=== PATIENT | female | born 1950 | race African-American/Black ===

== ENCOUNTER 2017-08-10 06:55 | Emergency (ER) | payer MEDICARE ==
[~2017-08-10] VITALS: Ht 165.1 cm; Wt 72.0 kg
[~2017-08-10 06:55] MED LIST: AMLODIPINE10 MG OR; AMLODIPINE5 MG PO; ASPIRIN LOW DOS81 M1 PO; ATORVASTATI80 MG/TAB PO; CIPROFLOXACN500 MG PO; FLEXERIL PO; GLIPIZIDE ER5 M1 PO; GLYBURID MCR3 MG PO; JANUVIA50 MG PO; LEVEMIR FL100 UNIT/M SC; LEVOTHROID50 MCG OR; LEVOTHYROXIN75 MCG PO; LIPITOR10 MG OR; LORTAB 7.5-3251 TAB PO; LOSARTAN POTASS25 MG PO; MAXZIDE-2537.5 MG/TA PO; METFORMIN500 M1 OR; METFORMIN500 MG PO; NORVASC5 MG OR; NOVOLOG FLEXPEN SC; OMEPRAZOLE40 MG OR; PREVACID30 M1 OR; RANITIDINE300 MG PO; SIMVASTATIN40 MG PO; SIMVASTATIN80 MG OR; SYNTHROID75 MCG OR; SYNTHROID88 MCG OR; ULTRAM50 M1 PO
[2017-08-10] MEDS ORDERED: ZOFRAN ODT4 MG PO (07:27)
[2017-08-10] MEDS ORDERED: ANTIVERT PO (07:27)
[2017-08-10 07:57] LABS: HEMOGLOBIN 14.7 g/dl (12.0-16.0); MEAN CELL VOLUME 87.8 fL CALC (80.0-100.0); MEAN CORPUSCULAR HGB 29.3 pG CALC (26.0-32.0); MEAN CORPUSCULAR HGB CONC 33.4 g/L CALC (32.0-36.0); NEUT# 1.95 thou/uL (2.00-7.15); RED BLOOD COUNT 5.01 mill/uL (4.20-5.60)
[2017-08-10 08:37] LABS: ALBUMIN 3.7 g/dL (3.2-5.0); ALKALINE PHOSPHATASE 60 u/l (38-126); ANION GAP 11 (6-22 (CALC)); BILIRUBIN, TOTAL 0.4 mg/dL (0.0-1.4); BUN 23 mg/dL (8-23); BUN/CREATININE RATIO 19 (12-20 (CALC)); CARBON DIOXIDE 29 mmol/l (22-30); CHLORIDE 106 mmol/l (95-108); CREATININE 1.2 mg/dL (0.5-1.0); GFR 45 ML/MIN (>=60 (CALC)); GFR FOR AFR.AMER. 55 ML/MIN (>=60 (CALC)); POTASSIUM 3.8 mmol/l (3.5-5.1); SGOT/AST 29 u/l (9-36); SGPT/ALT 36 u/l (11-66); SODIUM 141 mmol/l (137-146); TOTAL PROTEIN 7.2 g/dL (6.3-8.2)
[2017-08-10 08:48] LABS: MYOGLOBIN 48 ng/mL (0 - 62)
[2017-08-10 09:22] VITALS: BP 90/70
== END 2017-08-10 09:35 | disposition home or self-care (01) ==
LOC: ED 06:55
PROVIDERS: Emergency Medicine
DX: H81.10 Benign paroxysmal vertigo, unspecified ear (principal); I10 Essential (primary) hypertension; E11.9 Type 2 diabetes mellitus without complications

== ENCOUNTER 2017-11-09 02:50 | Inpatient (IN) | payer MEDICARE ==
[~2017-11-09] VITALS: Ht 165.1 cm; Wt 72.8 kg
[2017-11-09] VITALS (10 sets, daily range): BP systolic 89–122; BP diastolic 58–82
[~2017-11-09 02:50] MED LIST changes: +ANTIVERT PO; +ZOFRAN ODT4 MG PO
--- NOTE | 2017-11-09 02:58 | NUR ---
BY W/C TO ROOM
--- NOTE | 2017-11-09 03:35 | NUR ---
A/O F WITH 3-4 HRS ABD PAIN R FLANK PAIN BURNING WITH URINATION,DENIES HX SHMUEL; L STTONE N/V X1 OFFICE ENGINEER.
[2017-11-09 03:53] LABS: HEMATOCRIT 39.8 % (37.0-47.0); HEMOGLOBIN 13.5 g/dl (12.0-16.0); IMMATURE GRANULOCYTES 0.4 % (0.0-5.0); MEAN CELL VOLUME 87.7 fL CALC (80.0-100.0); MEAN CORPUSCULAR HGB 29.7 pG CALC (26.0-32.0); MEAN CORPUSCULAR HGB CONC 33.9 g/L CALC (32.0-36.0); NEUT# 11.74 thou/uL (2.00-7.15); RED BLOOD COUNT 4.54 mill/uL (4.20-5.60)
[2017-11-09 03:54] LABS: URINE BILIRUBIN - DIPSTICK NEGATIVE (NEGATIVE); URINE BLOOD DIPSTICK LARGE (NEGATIVE); URINE GLUCOSE - DIPSTICK NEGATIVE (NEGATIVE); URINE KETONE NEGATIVE (NEGATIVE); URINE PROTEIN - DIPSTICK NEGATIVE (NEG-TRACE); URINE UROBILINOGEN - DIPSTICK 0.2 E.U./dL (0.2)
[2017-11-09 03:56] LABS: URINE CLARITY CLOUDY; URINE COLOR DK. YELLOW; URINE LEUK ESTERASE SMALL (NEGATIVE); URINE NITRITE - DIPSTICK POSITIVE (Negative)
[2017-11-09 03:58] LABS: ALBUMIN 3.7 g/dL (3.2-5.0); ALKALINE PHOSPHATASE 67 u/l (38-126); AMYLASE 85 u/l (30-110); ANION GAP 12 (6-22 (CALC)); BILIRUBIN, TOTAL 0.6 mg/dL (0.0-1.4); BUN 37 mg/dL (8-23); BUN/CREATININE RATIO 22 (12-20 (CALC)); CARBON DIOXIDE 27 mmol/l (22-30); CHLORIDE 104 mmol/l (95-108); CREATININE 1.7 mg/dL (0.5-1.0); GFR 30 ML/MIN (>=60 (CALC)); GFR FOR AFR.AMER. 36 ML/MIN (>=60 (CALC)); LIPASE 218 u/l (23-300); POTASSIUM 3.4 mmol/l (3.5-5.1); SGOT/AST 34 u/l (9-36); SODIUM 140 mmol/l (137-146); TOTAL PROTEIN 7.1 g/dL (6.3-8.2)
[2017-11-09 04:10] LABS: MYOGLOBIN 58 ng/mL (0 - 62)
[2017-11-09 04:30] LABS: URINE BACTERIA FEW hpf; URINE RBC TNTC RBC/hpf (0-5); URINE SQUAMOUS EPITHELIAL CELL FEW EPI/hpf (0-FEW)
--- NOTE | 2017-11-09 04:30 | NUR ---
pain now rated at 2 on scale no vomiting pt feels better
--- NOTE | 2017-11-09 05:40 | NUR ---
ASSISTED TO RR TO VOID PT APPEARS STRONGER MORE STABLE LESS PAIN AMBULATING
--- NOTE | 2017-11-09 06:05 | NUR ---
PHONE REPORT TO NURSE ARENAS ON MS2
--- NOTE | 2017-11-09 06:10 | NUR ---
to ms via stretcher in stable condition
--- NOTE | 2017-11-09 06:23 | NUR ---
PT ARRIVED TO UNIT AT 0613 VIA STRETCHER WITH ER STAFF; ALERT AND ORIENTED. AMBULATED TO BED INDEPENDENTLY. DENIES PAIN CURRENLTY. RESPIRATIONS EVEN AND UNLABORED ON ROOM AIR. ORIENTED TO ROOM AND CALL LIGHT SYSTEM. PLAN OF CARE DISCUSSED. PT ENCOURAGED TO VERBALIZE CONCERNS. STATES UNDERSTADNING. SAFETY MEASURES IN PLACE. CALL LIGHT WITHIN REACH.
--- NOTE | 2017-11-09 07:50 | NUR ---
ASSESSMENT IS COMPLETED:; IV SITE IS FREE FROM REDNESS OR EDEMA. HR IS REG,PULSES ARE STRONG X4, ABD IS SOFT WITH ACTIVE BS. BREATH SOUNDS ARE CLEAR BILATERALLY. TELE MONITOR IN PLACE. CONITNUE TO MICHELE.
--- NOTE | 2017-11-09 09:51 | NUR ---
RECEIVED A CALL FROM ROBBIE RN IN OR. ORDERS FROM WILL TAKE PT TO OR AT 1400 FOR A CYSTOCOPY WITH R STENT PLACEMENT
--- NOTE | 2017-11-09 09:58 | NUR ---
SPOKE [facility] PT RE: AND PROCEDURE FOR THIS AFTERNOON. PT STATES" I HAVE A DR IN PT VERNON.".
--- NOTE | 2017-11-09 10:30 | NUR ---
REPORT RECEIVED FROM JOSE ANTONIO FONG FROM ANESTHESIA TO BEDSIDE.
--- NOTE | 2017-11-09 11:10 | NUR ---
ENTERED ROOM AND INTRODUCED SELF TO PT, DISCUSSED POC AND ROCEPHIN ADMINISTRATION. PT IN AGREEMENT. PT IS NPO ASSESSMENT COMPLETED. ALL JEWELRY REMOVED, DENTURES REMOVED. AND CONFIRMED ALLERGIES WITH PT. CALL LIGHT IN REACH,CONTINUE TO MONITOR.
--- NOTE | 2017-11-09 11:19 | NUR ---
RAMY AND TO BEDSIDE.
--- NOTE | 2017-11-09 13:52 | NUR ---
PT RESTING IN BED BP 94/58 HR 88, WEB CONSULTANT NOTIFIED AND ORDERS FOR 500CC BOLUS TO INFUSE OVER AN HR. CONTINUE TO MONITOR.
--- NOTE | 2017-11-09 14:43 | NUR ---
OR TO BEDSIDE TO TAKE PT TO OR FOR SURGERY, CONSENT SIGNED WITH OR NURSE. PT TAKEN DOWN IN STRETCHER BY OR NURSE. CONTINUE TO MONITOR.
--- NOTE | 2017-11-09 15:33 | NUR ---
PT REMAINS IN OR AT THIS TIME.
--- NOTE | 2017-11-09 17:30 | NUR ---
PT ARRIVED TO MS2 VIA STRETCHER ACCOMPANIED BY OR NURSES X2. PT SCD'S INITIATED, IS AT BEDSIDE. DINNER PROVIDED. #22F BROWN CATHETER DRAINING TO GRAVITY, LEG STRAP IN PLACE. VISITORS X2 AT BEDSIDE. CALL LIGHT IN REACH,CONTINUE TO MONITOR.
--- NOTE | 2017-11-09 18:30 | NUR ---
EDUCATED PT ON USE OF IS, 10X PER HR EVERY HR WHILE AWAKE, PT DEMONSTRATED USE, 1000ML. NO SIGNS OF DISTRESS NOTED, RESP EVEN AND UNLABORED. TOLERATED DINNER TRAY WELL. CALL LIGHT IN REACH
--- NOTE | 2017-11-09 20:10 | NUR ---
ASSESSMENT IS COMPLETED: PT IS RELAXING IN BED WITH NO DISTRESS NOTED. IV SITE IS FREE FROM REDNESS OR EDEMA. HR IS REG, PULSES ARE STRONG X4, ABD IS SOFT WITH ACTIVE BS. BROWN INTACT DRAINING YELLOW URINE. CONTINUE TO OBSERVE AND MONITOR TELE MONITOR IN PLACE. CALL VARGAS IN REACH.
--- NOTE | 2017-11-10 00:10 | NUR ---
PT IS RESTING WITH EYES CLOSED, NO DISTRESS NOTED. BROWN DRAINING YELLOW URINE. CONITNUE TO OSBERVE AND MONITOR.
[2017-11-10 00:20] VITALS: BP 102/69; BP 102/9
--- NOTE | 2017-11-10 04:10 | NUR ---
PT HAS BEEN RESTING WITH EYES CLOSED, IV SITE IS FREE FROM REDNESS OR EDEMA.
[2017-11-10 05:23] LABS: HEMATOCRIT 36.7 % (37.0-47.0); HEMOGLOBIN 12.2 g/dl (12.0-16.0); IMMATURE GRANULOCYTES 0.5 % (0.0-5.0); MEAN CELL VOLUME 89.7 fL CALC (80.0-100.0); MEAN CORPUSCULAR HGB 29.8 pG CALC (26.0-32.0); MEAN CORPUSCULAR HGB CONC 33.2 g/L CALC (32.0-36.0); NEUT# 6.05 thou/uL (2.00-7.15); RED BLOOD COUNT 4.09 mill/uL (4.20-5.60); RED CELL DISTRI WIDTH 12.3 % (11.5-15.5)
[2017-11-10 05:26] VITALS: BP 100/75
[2017-11-10 05:46] LABS: CREATININE 1.1 mg/dL (0.5-1.0); MAGNESIUM 1.8 mg/dL (1.6-2.3); POTASSIUM 3.7 mmol/l (3.5-5.1)
--- NOTE | 2017-11-10 07:30 | NUR ---
PT RESTING IN BED, NO SIGNS OF DISTRESS NOTED, RESP EVEN AND UNLABORED. PT ALERT AND ORIENTED X3, BROWN DRAINING TO GRAVITY, LEG STRAP IN PLACE, BROWN DUE TO BE REMOVED AT 0800. DISCUSSED POC, PT IN AGREEMENT. DENIES PAIN AT THIS TIME, ASSESSMENT COMPLETED. CALL LIGHT IN REACH,CONTINUE TO MONITOR.
[2017-11-10 09:56] VITALS: BP 115/79
--- NOTE | 2017-11-10 10:03 | NUR ---
PT RESTING IN BED, NO SIGNS OF DISTRESS NOTED, RESP EVEN AND UNLABORED. INFORMED PT OF REMOVAL OF CATHETER, PT IN AGREEMENT. BROWN CATHETER REMOVED, CATHETER INTACT, PT TOLERATED WELL. PT UP TO RECLINER AT BEDSIDE, ONCE ROCEPHIN COMPLETED, PT WANTS TO SHOWER. CALL LIGHT IN REACH,CONTINUE TO MONITOR.
[2017-11-10] MEDS ORDERED: KEFLEX500 M1 PO (11:47)
[2017-11-10] MEDS ORDERED: LORTAB 5/3255 MG PO (11:47)
[2017-11-10 11:58] VITALS: BP 114/80
--- NOTE | 2017-11-10 13:15 | NUR ---
Discharge instructions given. Patient verbalizes understanding of same. Discharged in stable condition via Ambulatory to Home with significant other. All belongings sent with pt.
== END 2017-11-10 13:20 | disposition home or self-care (01) | DRG 661 ==
LOC: ED 02:50 → ED-I 05:00 → ED 05:48 → MS2 05:49
PROVIDERS: Emergency Medicine; Nurse Practitioner Family; ADMIT Internal Medicine; ATTEND Internal Medicine
PROC: 0T768DZ Dilation of Right Ureter with Intraluminal Device, Via Natural or Artificial Opening Endoscopic (ICD-10-PCS; principal; 2017-11-09)
PROC: BT1D1ZZ Fluoroscopy of Right Kidney, Ureter and Bladder using Low Osmolar Contrast (ICD-10-PCS; 2017-11-09)
PROC: 0T7D8ZZ Dilation of Urethra, Via Natural or Artificial Opening Endoscopic (ICD-10-PCS; 2017-11-09)
DX: N13.6 Pyonephrosis (principal); N17.9 Acute kidney failure, unspecified; I12.9 Hypertensive chronic kidney disease with stage 1 through stage 4 chronic kidney disease, or unspecified chronic kidney disease; N18.3 Chronic kidney disease, stage 3 (moderate); E11.22 Type 2 diabetes mellitus with diabetic chronic kidney disease; N35.92 Unspecified urethral stricture, female; E03.9 Hypothyroidism, unspecified; E78.5 Hyperlipidemia, unspecified; K21.9 Gastro-esophageal reflux disease without esophagitis; E86.0 Dehydration; B96.20 Unspecified Escherichia coli [E. coli] as the cause of diseases classified elsewhere; Z79.4 Long term (current) use of insulin
CPT/HCPCS: C1769; Q9967

== ENCOUNTER 2018-07-22 07:35 | Emergency (ER) | payer MEDICARE ==
[~2018-07-22] VITALS: Ht 165.1 cm; Wt 75.0 kg
[~2018-07-22 07:35] MED LIST changes: +KEFLEX500 M1 PO; +LORTAB 5/3255 MG PO
[2018-07-22 08:14] LABS: HEMATOCRIT 41.4 % (37.0-47.0); HEMOGLOBIN 13.8 g/dl (12.0-16.0); IMMATURE GRANULOCYTES 0.2 % (0.0-5.0); MEAN CELL VOLUME 88.8 fL CALC (80.0-100.0); MEAN CORPUSCULAR HGB 29.6 pG CALC (26.0-32.0); MEAN CORPUSCULAR HGB CONC 33.3 g/L CALC (32.0-36.0); NEUT# 4.22 thou/uL (2.00-7.15); RED BLOOD COUNT 4.66 mill/uL (4.20-5.60); RED CELL DISTRI WIDTH 12.3 % (11.5-15.5)
[2018-07-22 08:34] LABS: ALBUMIN 4.1 g/dL (3.2-5.0); ALKALINE PHOSPHATASE 84 u/l (38-126); ANION GAP 12 (6-22 (CALC)); BILIRUBIN, TOTAL 0.4 mg/dL (0.0-1.4); BUN 16 mg/dL (8-23); BUN/CREATININE RATIO 13 (12-20 (CALC)); CARBON DIOXIDE 25 mmol/l (22-30); CHLORIDE 111 mmol/l (95-108); CREATININE 1.2 mg/dL (0.5-1.0); GFR 45 ML/MIN (>=60 (CALC)); GFR FOR AFR.AMER. 54 ML/MIN (>=60 (CALC)); POTASSIUM 3.6 mmol/l (3.5-5.1); SGOT/AST 34 u/l (9-36); SODIUM 144 mmol/l (137-146); TOTAL PROTEIN 7.5 g/dL (6.3-8.2)
[2018-07-22] MEDS ORDERED: ANTIVERT PO (10:38)
[2018-07-22 10:45] VITALS: BP 138/93
== END 2018-07-22 10:53 | disposition home or self-care (01) ==
LOC: ED 07:35
PROVIDERS: Emergency Medicine
DX: R42 Dizziness and giddiness (principal); E11.9 Type 2 diabetes mellitus without complications; I10 Essential (primary) hypertension

== ENCOUNTER 2020-07-25 23:36 | Emergency (ER) | payer MEDICARE ==
[~2020-07-25] VITALS: Ht 165.1 cm; Wt 69.5 kg
[~2020-07-25 23:36] MED LIST changes: -AMLODIPINE5 MG PO; -ATORVASTATI80 MG/TAB PO; +LIPITOR40 M1 PO; +NORVASC5 M1 PO
[2020-07-25] MEDS ORDERED: GLIPIZIDE10 MG PO (23:58)
[2020-07-26 00:30] LABS: HEMATOCRIT 42.1 % (37.0-47.0); HEMOGLOBIN 14.2 g/dl (12.0-16.0); IMMATURE GRANULOCYTES 0.3 % (0.0-5.0); MEAN CELL VOLUME 88.1 fL CALC (80.0-100.0); MEAN CORPUSCULAR HGB 29.7 pG CALC (26.0-32.0); MEAN CORPUSCULAR HGB CONC 33.7 g/dL CAL (32.0-36.0); NEUT# 4.99 thou/uL (2.00-7.15); RED BLOOD COUNT 4.78 mill/uL (4.20-5.60); RED CELL DISTRI WIDTH 12.3 % (11.5-15.5)
[2020-07-26 00:42] LABS: ALBUMIN 4.2 g/dL (3.2-5.0); BILIRUBIN, TOTAL 0.4 mg/dL (0.0-1.4); CREATININE 1.5 mg/dL (0.5-1.0); POTASSIUM 3.5 mmol/l (3.5-5.1); TOTAL PROTEIN 8.1 g/dL (6.3-8.2)
[2020-07-26 01:12] LABS: TSH, 3RD GENERATION 2.39 uIU/mL (0.47 - 4.68)
[2020-07-26 01:31] VITALS: BP 124/68
== END 2020-07-26 01:45 | disposition home or self-care (01) ==
LOC: ED 23:36
PROVIDERS: Family Medicine
DX: E11.649 Type 2 diabetes mellitus with hypoglycemia without coma (principal); T38.3X5A Adverse effect of insulin and oral hypoglycemic [antidiabetic] drugs, initial encounter; E11.22 Type 2 diabetes mellitus with diabetic chronic kidney disease; I12.9 Hypertensive chronic kidney disease with stage 1 through stage 4 chronic kidney disease, or unspecified chronic kidney disease; N18.30 Chronic kidney disease, stage 3 unspecified; N17.9 Acute kidney failure, unspecified; Z79.4 Long term (current) use of insulin